=== PATIENT | male | born 1995 | race African-American/Black ===

== ENCOUNTER → 2017-01-27 | Outpatient (CLI) | payer OTHER, BC ==
--- NOTE | 2017-01-27 11:18 | DIAGNOSTIC IMAGING REPORT ---
RIGHT KNEE 4 OR MORE CLINICAL HISTORY: RIGHT KNEE PAIN Right pain COMPARISON: None. DISCUSSION: The bones and joint spaces appear intact. There is no evidence of fracture, dislocation or bony disease. There is no evidence for soft tissue swelling. IMPRESSION: Negative study. Electronically signed by: Patrick Garcia M.D. 01/27/2017 11:16 AM Dictated Date/Time: 01/27/2017 11:16 AM
== END | disposition home or self-care (01) ==
LOC: C.RDSM 11:02
PROVIDERS: ATTEND Internal Medicine
DX: S89.91XA Unspecified injury of right lower leg, initial encounter (principal); X58.XXXA Exposure to other specified factors, initial encounter

== ENCOUNTER → 2017-01-29 | Outpatient (CLI) | payer OTHER, BC ==
--- NOTE | 2017-01-30 09:34 | DIAGNOSTIC IMAGING REPORT ---
MRI OF THE RIGHT KNEE CLINICAL HISTORY: Right knee injury and pain. COMPARISON STUDY: Radiographs of the right knee dated 01/27/2017. TECHNIQUE: MRI of the right knee was performed utilizing proton density, T1, and T2-weighted sequences in the axial, sagittal, coronal planes. IV contrast was not administered for this examination. FINDINGS: Menisci: The lateral meniscus is intact. The posterior horn of the medial meniscus appears somewhat diminutive. There is an indeterminant structure seen along the medial aspect of the intercondylar notch adjacent to the posterior cruciate ligament on coronal image #19 and high-resolution sagittal image #10. A small bucket-handle type tear of the posterior horn of the medial meniscus is not excluded. Ligaments: The anterior cruciate ligament is intact. The posterior cruciate ligament appears somewhat irregular; however, the fibers appear intact. The medial and lateral collateral ligaments are within normal limits. Extensor mechanism: The extensor mechanism is intact. Hoffa's fat pad is normal in appearance. Articular cartilage and bone: The articular cartilage is intact and well maintained all 3 compartments. There is mild marrow edema seen within the posterior aspect of the medial tibial plateau. This is best seen on sagittal STIR image #18. Joint effusion: There is a small joint effusion. Soft tissues: The musculature surrounding the knee joint is normal in bulk and signal intensity. There is fluid seen tracking along the body of the semimembranosus muscle. There is deep soft tissue edema identified posterior to the posterior cruciate ligament. IMPRESSION: 1. The anterior cruciate ligament is intact. The collateral ligaments and the lateral meniscus are preserved. 2. The posterior cruciate ligament appears somewhat irregular in contour; however, the fibers are intact. There is deep soft tissue edema behind the posterior cruciate ligament and this may represent strain. 3. Question a tiny bucket-handle type tear of the posterior horn of the medial meniscus. Clinical correlation will be required. 4. There is mild marrow edema seen within the posterior aspect of the medial tibial plateau. 5. There is fluid seen tracking along the body of the semimembranosus muscle, possibly representing muscle strain. 6. Small joint effusion. Electronically signed by: Shawn Kim M.D. 01/30/2017 9:33 AM Dictated Date/Time: 01/29/2017 7:34 PM
== END | disposition home or self-care (01) ==
LOC: C.MRI 18:17
PROVIDERS: ATTEND Internal Medicine
DX: S89.91XA Unspecified injury of right lower leg, initial encounter (principal); X58.XXXA Exposure to other specified factors, initial encounter

== ENCOUNTER → 2017-02-14 | Outpatient (CLI) | payer OTHER, BC ==
--- NOTE | 2017-02-14 17:08 | DIAGNOSTIC IMAGING REPORT ---
CHEST 2 VIEWS ROUTINE CLINICAL HISTORY: COUGH X 2 WKS cough COMPARISON STUDY: No previous studies for comparison. FINDINGS: The bones soft tissues and hemidiaphragms are normal. The cardiomediastinal silhouette is normal. The lungs are clear. The pulmonary vasculature is normal. IMPRESSION: Negative chest. Electronically signed by: Patrick Garcia M.D. 02/14/2017 5:06 PM Dictated Date/Time: 02/14/2017 5:06 PM
== END | disposition home or self-care (01) ==
LOC: C.RDSM 10:48
PROVIDERS: ATTEND Family Medicine
DX: R05 Cough (principal)

== ENCOUNTER → 2017-12-12 | Outpatient (CLI) | payer BC, OTHER ==
--- NOTE | 2017-12-12 08:58 | DIAGNOSTIC IMAGING REPORT ---
L LOWER EXT JOINT WITHOUT CLINICAL HISTORY: 22 years-old Male presenting with INJURY OF LEFT LOWER LEG, left knee pain status post injury 2 weeks ago, posterior knee pain, history of ACL reconstruction. TECHNIQUE: Multisequence, multiplanar MR imaging of the left knee was performed without the use of intravenous contrast. IV contrast: None. COMPARISON: 09/21/2015. FINDINGS: Localizer images: Unremarkable. Postsurgical changes of anterior cruciate ligament reconstruction. No abnormal fluid signal intensity at the femoral socket or along the tibial tunnel. Normal signal intensity of the ACL graft, which is intact. No bony edema allowing for regional susceptibility artifact with failed fat suppression along the tibial tunnel. Articular cartilage intact. Medial and lateral menisci intact. Posterior cruciate ligament intact. Medial collateral ligament intact. Lateral collateral ligament complex including the biceps femoris tendon, fibular collateral ligament, popliteus tendon, and iliotibial band intact. Quadriceps and patellar tendons intact. Trace knee joint effusion. Trace popliteal cyst. Normal muscle bulk and muscle signal intensity. IMPRESSION: 1. Expected postsurgical changes of ACL repair. 2. No evidence of soft tissue injury. 3. Trace knee joint effusion. Electronically signed by: Clyde Borges M.D. 12/12/2017 8:56 AM Dictated Date/Time: 12/12/2017 8:48 AM
== END | disposition home or self-care (01) ==
LOC: C.MRI 07:56
PROVIDERS: ATTEND Physical Medicine & Rehabilitation Sports Medicine
DX: S89.92XA Unspecified injury of left lower leg, initial encounter (principal); X58.XXXA Exposure to other specified factors, initial encounter

== ENCOUNTER → 2018-01-26 | Outpatient (CLI) | payer BC, OTHER ==
--- NOTE | 2018-01-26 14:27 | DIAGNOSTIC IMAGING REPORT ---
LUMBAR SPINE MIN 4 VIEWS CLINICAL HISTORY: 22 years-old Male presenting with LBP. TECHNIQUE: Frontal, bilateral oblique, lateral, coned in lateral views of the lumbar spine were obtained. COMPARISON: None. FINDINGS: No significant scoliosis. Normal lumbar lordosis. Vertebral bodies maintain normal height and alignment. Intervertebral disc heights preserved. No advanced degenerative change. No compression deformity or radiographic evidence of osseous neural foraminal narrowing. IMPRESSION: Normal radiographic evaluation of the lumbar spine. Electronically signed by: Clyde Borges M.D. 01/26/2018 2:25 PM Dictated Date/Time: 01/26/2018 2:24 PM
== END | disposition home or self-care (01) ==
LOC: C.RDSM 15:33
PROVIDERS: ATTEND Internal Medicine
DX: M54.5 Low back pain (principal)